=== PATIENT | female | born 1990 | race Caucasian/White ===

== ENCOUNTER 2024-05-22 15:07 | Outpatient (OUT) | payer MEDICARE, MEDICAID, SELFPAY ==
[2024-05-22 17:01] LABS: Estimated Average Glucose 100 mg/dL; Glycohemoglobin A1C 5.1 % (4.5-6.2)
[2024-05-22 17:42] LABS: Alanine Aminotransferase 44 U/L (14-59); Albumin Globulin Ratio 0.8; Albumin Level 2.8 g/dL (3.4-5.0); Alkaline Phosphatase 118 U/L (46-116); Anion Gap 8.5; Aspartate Amino Transferase 74 U/L (15-37); BUN Creatinine Ratio 17.9; Bilirubin Total 0.4 mg/dL (0.2-1.0); C Reactive Protein <0.50 mg/dL (<=0.50); Calcium 8.5 mg/dL (8.5-10.1); Carbon Dioxide 31.7 mmol/L (21.0-32.0); Chloride 99 mmol/L (98-107); Chol HDL Ratio 2.3; Cholesterol 175 mg/dL (<=200); Estimated GFR (African America >60 (>=60); Estimated GFR (Non-African Ame >60 (>=60); Free T3 3.03 pg/mL (2.18-3.98); Globulin 3.7 g/dL; Glucose 86 mg/dL (74-106); HDL Cholesterol 77 mg/dL (40-60); Potassium 3.2 mmol/L (3.5-5.1); Sodium 136 mmol/L (136-145); Thyroid Stimulating Hormone 2.736 uIU/mL (0.358-3.740); Total Protein 6.5 g/dL (6.4-8.2); Triglycerides 59 mg/dL (<=150); Uric Acid 3.9 mg/dL (2.6-6.0); VLDL CHOLESTEROL 11.8 mg/dL
[2024-05-23 06:13] LABS: Antistreptolysin O Ab 92.4 IU/mL (0.0-200.0); Rheumatoid Factor (RF) 15.3 IU/mL (<14.0)
[2024-05-24 11:07] LABS: Insulin 4.1 uIU/mL (2.6-24.9)
[2024-05-25 11:08] LABS: Antinuclear Antibodies, IFA Negative (.)
== END 2024-05-22 15:08 | disposition home or self-care (01) ==
PROVIDERS: PCP Family Medicine; Visit Provider Family Medicine
DX: R60.9 Edema, unspecified (principal); F32.A Depression, unspecified; E78.5 Hyperlipidemia, unspecified; R73.09 Other abnormal glucose; D64.9 Anemia, unspecified; E55.9 Vitamin D deficiency, unspecified; I11.0 Hypertensive heart disease with heart failure; I50.30 Unspecified diastolic (congestive) heart failure
CPT/HCPCS: 36415; 80053; 80061; 82306; 83036; 83525; 83540; 83880; 84436; 84443; 84481; 84550; 86038; 86060; 86140; 86431; 87522

== ENCOUNTER 2025-07-30 04:20 | Emergency (ER) | payer MEDICARE, MEDICAID, SELFPAY ==
[2025-07-30 04:26] VITALS: BP 143/88; PULSE 81; TEMP 36.8; O2SAT 99; BMI 28.2
--- OUTSIDE RECORDS SUMMARY | 2025-07-30 04:36 | XMS_ITS | CCD ---
Author Organization [facility] Care Team Providers Care Senior Reliability Engineer Name Role Phone Rosa Maria Charlton Primary Care Provider SOLITARIO JACQUES Referring Unavailable ROSA MARIA CHARLTON Primary Care Unavailable MD Rosa Maria Charlton Primary Care Provider [phone] MD Bal Casey Attending Provider Rosa Maria Charlton MD Primary Care Provider Bal Casey MD Attending Provider Rosa Maria Charlton Primary Care Unavailable Asaad Imad Attending Unavailable Asamaggie Imad Admitting Unavailable Asamaggie Imad Admitting Unavailable Rosa Maria Charlton Primary Care Unavailable Asamaggie Immaggie Attending Unavailable Medications Current Medications Medication Drug Class(es) Dates Sig (Normalized) Sig (Original) Acetaminophen (1 source) Acetaminophen (T YLENOL PO) Take by mouth as needed 0 Active Problems Problem Classification Problem Date Documented Da te Episodic/Chronic Hepatitis (7 sources) Viral hepatitis C; Translations: [Unspecified viral hepatitis C without hepatic coma] Onset: 09-21-2024 09-08-2024 Episodic Results Test Name Value Interpretation Reference Range Facility HIV 1/O/2 Antigen/Antibodyon 09-21-2024 HIV Screen 4th Generation Non-Reactive Normal Non Reactive [facility] Comment on above: Result Comment: HIV- 1/HIV-2 antibodies and HIV-1 p24 antigen were NOT detected. There is no laboratory evidence of HIV infection. HIV Negative Performed at: [facility] [id number] Funeral Home Manager: Pascual De La Cruz PhD, Phone: [phone] PERFORMED BY: [address] [address] PATHOLOGIST CORRUGATOR JANET MILLAN M.D. Performed By: #### H BCAB, HBSAB, HAABT, HIV SCREEN, HBSAG, HCV RX PCR, HCV RNA DIAG #### [facility] , Hep C Ab wRfx to Qnt PCRon 1 11-21-2023 HCV Log10 6.999 Normal . [facility] Comment on above: Result Comment: Resu lt Units: log10 IU/mL Performed By: #### H BCAB, HBSAB, HAABT, HIV SCREEN, HBSAG, HCV RX PCR, HCV RNA DIAG #### [facility] , Hepatitis C Quantitation [id number] [IU]/mL Normal . [facility] Comment on above: Performed By: #### H BCAB, HBSAB, HAABT, HIV SCREEN, HBSAG, HCV RX PCR, HCV RNA DIAG #### [facility] , Hepatitis C Virus Antibody Reactive Critically abnormal Non Reactive [facility] Comment on above: Performed By: #### H BCAB, HBSAB, HAABT, HIV SCREEN, HBSAG, HCV RX PCR, HCV RNA DIAG #### [facility] , Interpretation Comment Normal . [facility] Comment on above: Result Comment: Posi tive HCV antibody screen with the presence of HCV RNA is consistent with active infection. Performed at: [facility] [address] [id number] Funeral Home Manager: Pascual De La Cruz PhD, Phone: [phone] Performed at: [facility] [address] [id number] Funeral Home Manager: Stephanie Vergara MD, Phone: [phone] Performed By: #### H BCAB, HBSAB, HAABT, HIV SCREEN, HBSAG, HCV RX PCR, HCV RNA DIAG #### [facility] , Hep C RNA Diagnosison 2023 HCV RNA log10, Confirm 7.097 Normal . [facility] Comment on above: Result Comment: Resu lt Units: log10 IU/mL PERFORMED BY: [address] [place] [address] PATHOLOGIST CORRUGATOR JANET MILLAN M.D. Performed By: #### H BCAB, HBSAB, HAABT, HIV SCREEN, HBSAG, HCV RX PCR, HCV RNA DIAG #### [facility] , HCV RNA, Quant, Confirm [id number] Normal . [facility] Comment on above: Result Comment: HCV RNA detected HCV RNA viral loads >/= 25 IU/mL indicate current HCV infection. Performed By: #### H BCAB, HBSAB, HAABT, HIV SCREEN, HBSAG, HCV RX PCR, HCV RNA DIAG #### [facility] , HCV RNA, Quantitation See Final Results Normal . [facility] Comment on above: Performed By: #### H BCAB, HBSAB, HAABT, HIV SCREEN, HBSAG, HCV RX PCR, HCV RNA DIAG #### [facility] , Test Information: Comment Normal . [facility] Comment on above: Result Comment: The quantitative range of this assay is 15 IU/mL to 100 million IU/mL. Performed at: [address] [id number] Funeral Home Manager: Stephanie Vergara MD, Phone: [phone] Performed By: #### H BCAB, HBSAB, HAABT, HIV SCREEN, HBSAG, HCV RX PCR, HCV RNA DIAG #### [facility] , Result Comment: The quantitative range of this assay is 15 IU/mL to 100 million IU/mL. Hepatitis A Antibody Totalon 09-21-2024 Hepatitis A Antibody Total Negative Normal Negative [facility] Comment on above: Result Comment: Comm ent: The HAV total antibody assay detects both IgG and IgM but does not differentiate between them. A negative result suggests susceptibility to infection. A positive result could be due to vaccination, previously resolved infection or active infection. Testing for HAV IgM should be performed if active HAV infection is suspected. [facility] offers profiles that will automatically reflex positive HAV total antibody results to IgM (e.g., panel #[id number] HAV Antibody w/ Rfx). Performed at: [address] [id number] Funeral Home Manager: Pascual De La Cruz PhD, Phone: [phone] Performed By: #### H BCAB, HBSAB, HAABT, HIV SCREEN, HBSAG, HCV RX PCR, HCV RNA DIAG #### [facility] , Hepatitis B Core Antibodyon 09-21-2024 Hepatitis B Core Antibody Positive Critically abnormal Negative [facility] Comment on above: Performed By: #### H BCAB, HBSAB, HAABT, HIV SCREEN, HBSAG, HCV RX PCR, HCV RNA DIAG #### [facility] , Hepatitis B Surface Antibody on 09-21-2024 Hepatitis B Surface Antibody Non-Reactive Normal . [facility] Comment on above: Result Comment: Non Reactive: Not immune to HBV infection. Equivocal: Unable to determine if anti-HBs is present at levels consistent with immunity. Reactive: Anti-HBs concentration detected at greater than 10 mIU/mL. Individual is considered to be immune to infection with HBV. Performed By: #### H BCAB, HBSAB, HAABT, HIV SCREEN, HBSAG, HCV RX PCR, HCV RNA DIAG #### [facility] , Hepatitis B Surface Antigeno n 09-21-2024 HBsAg Screen Negative Normal Negative [facility] Comment on above: Result Comment: PERF ORMED BY: [place] [address] PATHOLOGIST CORRUGATOR PALOMA KNIGHT M.D. Performed By: #### H BCAB, HBSAB, HAABT, HIV SCREEN, HBSAG, HCV RX PCR, HCV RNA DIAG #### [facility] , US liveron 09-21-2024 US liver [place] [address] Ultrasound Report Signed Patient: Dayana Bach MR#: [id number] : 1990 Acct:[id number] Age/Sex: 34 / F ADM Date: 09/21/24 Loc: Room: Type: [facility] Attending Dr: Bal Casey MD Ordering Provider: Bal Casey MD Date of Service: 09/21/24 US/US liver: B19.20 - Unspecified viral hepatitis C without hepatic coma Copies to: Bal Casey MD EXAMINATION TYPE: US liver DATE OF EXAM ORDERED: 09/21/2024 11:04 AM HISTORY: Hepatitis C COMPARISON: NONE TECHNIQUE: Realtime imaging limited to the right upper quadrant was performed. FINDINGS: The gallbladder appears within normal limits without evidence of cholelithiasis. The gallbladder wall measures 2 mm in thickness. Common bile but measures 8 mm in diameter. No intrahepatic or extrahepatic biliary dilatation is seen. The liver is echogenic in respect to the right renal cortex suggesting hepatic steatosis. There is hepatopedal flow the main portal vein. Partial visualization of the right kidney reveals no gross hydronephrosis. Partial visualization of the pancreas reveals no abnormality. ? US/US liver IMPRESSION: Findings suggest hepatic steatosis. No sonographic evidence of acute cholecystitis. The common bile duct is mildly distended measuring 8 mm in transverse dimension. This is of uncertain etiology or significance. Impression dictated by: Ivan Guevara M.D.09/21/2024 5:45 PM Dictation Location: [place] [address] Tech: Liv Wagoner Transcribed By: BART 09/21/241744 Dictated By: Ivan Guevara II, MD 09/21/241742 Signed By: 09/21/241744 Normal [facility] COVID-19on 03-24-2020 SARS-CoV-2 [place] SARS-CoV-2, PCR Not Detected Not Detected [place] Comment on above: (NOTE) The Ross RealTime SARS-CoV-2 assay is a real-time (rt) reverse transcriptase (RT) polymerase chain reaction (PCR) test intended for the [employer] system. The SARS-CoV-2 primer and probe sets are designed to detect RNA from SARS-CoV-2 in nasopharyngeal (SEAM FINISHER) and oropharyngeal (OP) swabs from patients with signs and symptoms of infection who are suspected of COVID-19. Results are for the identification of SARS-CoV-2 RNA. The SARS-CoV-2 RNA is generally detectable in a nasopharyngeal and oropharyngeal swabs during the acute phase of infection. The Ross RealTime SARS-CoV-2 assay is intended for use by qualified and trained clinical laboratory personnel specifically instructed and trained in the techniques of real-time PCR and in vitro diagnostic procedures. The Ross RealTime SARS-CoV-2 assay is only for use under the Food and Drug Administration Emergency Use Authorization. Testing is limited to laboratories certified under the Clinical Laboratory Improvement Amendments of 1988 (CLIA), 42 U.S.C. 263a, to perform high complexity tests. Not Detected: Not detected does not preclude SARS-CoV-2 infection and should not be used as the sole basis for patient management decisions. Not detected results must be combined with clinical observations, patient history, and epidemiological information. The above 1 analytes were performed by [address] [address] SARS-CoV-2, [place], [place] Source .NASOPHARYNGEAL SWAB [place], [place] [id number] 03-24-2020 SARS-CoV-2 Not Detected Normal Not Detected [facility] Hospital Comment on above: Result Comment: (NOT E) The Ross RealTime SARS-CoV-2 assay is a real-time (rt) reverse transcriptase (RT) polymerase chain reaction (PCR) test intended for the [employer] system. The SARS-CoV-2 primer and probe sets are designed to detect RNA from SARS-CoV-2 in nasopharyngeal (SEAM FINISHER) and oropharyngeal (OP) swabs from patients with signs and symptoms of infection who are suspected of COVID-19. Results are for the identification of SARS-CoV-2 RNA. The SARS-CoV-2 RNA is generally detectable in a nasopharyngeal and oropharyngeal swabs during the acute phase of infection. The Ross RealTime SARS-CoV-2 assay is intended for use by qualified and trained clinical laboratory personnel specifically instructed and trained in the techniques of real-time PCR and in vitro diagnostic procedures. The Ross RealTime SARS-CoV-2 assay is only for use under the Food and Drug Administration Emergency Use Authorization. Testing is limited to laboratories certified under the Clinical Laboratory Improvement Amendments of 1988 (CLIA), 42 U.S.C. 263a, to perform high complexity tests. Not Detected: Not detected does not preclude SARS-CoV-2 infection and should not be used as the sole basis for patient management decisions. Not detected results must be combined with clinical observations, patient history, and epidemiological information. The above 1 analytes were performed by [facility] [address] [place] [address] Performed By: #### C OVID #### [facility] [address] [place] [address] Funeral Home Manager: Gabriel Lujan MD [facility] [address] [place] [address] Funeral Home Manager: Alexis Tello MD [id number] 03-23-2020 SARS-CoV-2,Rapid Normal [facility] Comment on above: Performed By: #### C OVID #### [facility] [address] [place] [address] Funeral Home Manager: Gabriel Lujan MD [facility] [address] [place] [address] Funeral Home Manager: Alexis Tello MD SARS-CoV-2 [facility] Comment on above: Performed By: #### C OVID #### [facility] [address] [place] [address] Funeral Home Manager: Gabriel Lujan MD [facility] [address] [place] [address] Funeral Home Manager: Alexis Tello MD SARS-CoV-2 Source .NASOPHARYNGEAL SWAB [facility] Comment on above: Performed By: #### C OVID #### [address] [address] Funeral Home Manager: Gabriel Lujan MD [facility] [address] [place] [address] Funeral Home Manager: Alexis Tello MD Vital Signs Date Time Vital Sign Value Performing Clinician Rileyi eric 09-08-2024 14:09 Body height 170.[address] [facility] 09-08-2024 14:09 Body mass index (BMI) [Ratio] 29 kg/m2 [facility] 09-08-2024 14: Body weight 83.[address] [facility] Encounters Encounter Date Encounter Type Care Provider Facility Start: 09-21-2024 End: 09-21-2024 Patient encounter procedure Rosa Maria Charlton MD Work Phone: [facility] Work Phone: Start: 09-21-2024 End: 09-21-2024 ambulatory Rosa Maria Charlton MD Work Phone: [facility] Work Phone: Start: 09-15-2024 End: 09-15-2024 Patient encounter procedure MD Rosa Maria Charlton Work Phone: [facility] Work Phone: Start: 09-15-2024 End: 09-15-2024 ambulatory MD Rosa Maria Charlton Work Phone: [facility] Work Phone: Start: 09-08-2024 End: 09-08-2024 ambulatory [facility] Work Phone: Start: 09-08-2024 End: 09-08-2024 Patient encounter procedure [facility] Work Phone: Start: 03-23-2020 End: 03-28-2020 Patient encounter procedure SOLITARIO JACQUES [facility] Start: 03-23-2020 End: 03-27-2020 Subsequent hospital visit by physician [facility] Covid19 Pat Screening Schedule MTHZ PRE ADMIT Procedures Date Procedure Procedure Detail Performing Clinician Start: 09-21-2024 Ultrasonography of liver Rosa Maria Charlton MD Work Phone: Start: 09-15-2024 Ultrasound elastogra phy of liver MD Rosa Maria Charlton Work Phone: Start: 03-23-2020 COVID-19 SOLITARIO LEZAMA Start: 03-23-2020 COVID-19 Solitario babcock Work Phone: Plan of Treatment Date Care Activity Detail Author Start: 09-21-2024 Hepatitis A virus Ab [Presence] in Serum by Immunoassay [facility] Start: 09-21-2024 Hepatitis B core antibody measurement [facility] Start: 09-21-2024 Hepatitis B virus surface Ab [Presence] in Serum [facility] Start: 09-21-2024 [facility] Start: 09-15-2024 [facility] Start: 07-12-2020 Influenza vaccination Flu vaccine (Season Ended) [place] Start: 03-22-2020 Annual Wellness Visit (AWV) Annual Wellness Visit (AWV) [place] Start: 2010 Screening for malignant neoplasm of cervix Cervical cancer screen [place] Start: 2008 DTaP/Tdap/Td vaccine (1 - Tdap) DTaP/Tdap/Td vaccine (1 - Tdap) [place] Start: 2004 HIV screening HIV screen [place] Start: 1995 Pneumococcal 0-64 years Vaccine (1 of 1 - PPSV23) Pneumococcal 0-64 years Vaccine (1 of 1 - PPSV23) [place] Start: 1990 Varicella vaccine (1 of 2 - 2-dose childhood series) Varicella vaccine (1 of 2 - 2-dose childhood series) [place] Hepatitis A virus Ab [Presence] in Serum by Immunoassay [facility] Hepatitis B core antibody measurement [facility] Hepatitis B virus surface Ab [Presence] in Serum [facility] Payers Date Payer Category Payer Medicaid MEDICAID [facility] DEPT OF JOB xxxxxxxxxxxx 2019-Present [phone] [address] [place] [address] xxxxxxxxxxxx [id number] 2019 Medicaid [id number] 2018 Medicare MEDICARE MEDICAR E PART A AND B xxxxxxxxxxx 2018-Present [phone] [address] [address] [place] [address] xxxxxxxxxxx [id number] 2018 Medicare [id number] 1990 Unknown [id number] Private Health Insurance A[employer]na [facility] [id number] Social History Date Type Detail Facility Start: 03-23-2020 Tobacco smoking stat us [facility]IS Current every day smoker [place] Start: 03-23-2020 Cigarettes smoked current (pack per day) - Reported [place] Start: 03-23-2020 Alcohol intake Ex-drinker (finding) [place] Sex Assigned At Not on file [place] Exposure to SARS-CoV -2 (event) Unable to assess [place] Start: 09-08-2024 End: 09-08-2024 Tobacco smoking status NHIS Smoker (finding) [facility] Start: 1990 Sex Assigned At Female F [facility] Start: 09-22-2024 Sex Patient sex un known (finding) [facility] Goals Date Patient Goal Desired Activity /State Radiology Diagnostic study note 09-21-2024 Note Date & Type Note Facility 09-21-2024 Radiology Diagnostic study note [facility] [place] [address] Ultrasound Report Signed Patient: Dayana Bach MR#: [id number] : 1990 Acct:[id number] Age/Sex: 34 / F ADM Date: 4 Loc: UL Room: Type: [facility] Attending Dr: Bal Casey MD Ordering Provider: Bal Casey MD Date of Service: 09/21/24 US/US liver: B19.20 - Unspecified viral hepatitis C without hepatic coma Copies to: Bal Casey MD~ EXAMINATION TYPE: US liver DATE OF EXAM ORDERED: 09/21/2024 11:04 AM HISTORY: Hepatitis C COMPARISON: NONE TECHNIQUE: Realtime imaging limited to the right upper quadrant was performed. FINDINGS: The gallbladder appears within normal limits without evidence of cholelithiasis. The gallbladder wall measures 2 mm in thickness. Common bile but measures 8 mmin diameter. No intrahepatic or extrahepatic biliary dilatation is seen. The liver is echogenic in respect to the right renal cortex suggesting hepatic steatosis. There is hepatopedal flow the main portal vein. Partial visualization of the right kidney reveals no gross hydronephrosis. Partial visualization of the pancreas reveals no abnormality. ? US/US liver IMPRESSION: Findings suggest hepatic steatosis. No sonographic evidence of acute cholecystitis. The common bile duct is mildly distended measuring 8 mm in transverse dimension. This is of uncertain etiology or significance. Impression dictated by: Ivan Guevara M.D.09/21/2024 5:45 PM Dictation Location: [place] [address] Tech: Liv Wagoner Transcribed By: BART 09/21/241744 Dictated By: Ivan Guevara II, MD 09/21/241742 Signed By: 09/21/241744 [facility] Work Phone: Evaluation note 09-08-2024 Note Date & Type Note Facility 09-08-2024 Evaluation note Authored September 08, 2024 1 :31pm 34-year-old female referred to the liver clinic for evaluation of hepatitis C Patient is treatment na ve. Will check viral hepatitis serologies, HCV RNA genotype and HIV Will arrange for FibroScan. Will arrange for ultrasound. Will prescribe antiviral therapy and follow-up with insurance regarding approval. [facility] Work Phone: Evaluation note Note Date & Type Note Facility Evaluation note Authored September 08, 2024 2 :31pm 34-year-old female referred to the liver clinic for evaluation of hepatitis C Patient is treatment na ve. Will check viral hepatitis serologies, HCV RNA genotype and HIV Will arrange for FibroScan. Will arrange for ultrasound. Will prescribe antiviral therapy and follow-up with insurance regarding approval. [facility] Work Phone: Advance Directives No Advanced Directives Records FoundDocuments on File Type Date Recorded Patient Retail Advertising Sales Manager Expl anation Advance Directives and Living Will Power of Correctional Counselor Advance Directive Response Recorded Date/ Time Advance Directives No Mirna 25th, 20 24 1:09pm Advance Directive Response Recorded Date/ Time Advance Directives No June 04 12:09pm Summary Purpose Family History No Family History Records Found Relationship Condition Age at Onset Recorded Date/T mela mother Malignant neoplasm Unknown Chief Complaint and Reason for Visit Chief Complaint Refer: consult for h epatitis c Reason for Visit Hepatitis C Chief Complaint Refer: consult for h epatitis c Hepatitis C Reason for Visit Hepatitis C Chief Complaint Admit Date Refer: consult for hepatitis c August 122023 1:57pm Hepatitis C September 15, 2024 1 2:58pm B19.20 September 21, 2024 11:03am Reason for Visit Admit Date Hepatitis C September 08, 2024 1 :57pm Additional Source Comments INFORMATION SOURCE (unrecogn ized section and content) DATE CREATED AUTHOR 03/28/2020 Shani winkler DATE CREATED AUTHOR 'Kathleen RUIZ ATION 09/26/2024 [facility] Care Teams (unrecognized sec tion and content) Team Status: Active Member Role Status Gwyn Charlton MD Primary Care Provider Active Team Status: Inactive Member Role Status Gwyn Charlton MD Primary Care Provider Active Start: September 08, 2024 End: September 08, 2024 Bal Casey MD Attending Provider Active Start: September 08, 2024 End: September 08, 2024 Team Status: Inactive Member Role Status Gwyn Charlton MD Primary Care Provider Active Start: September 15, 2024 End: September 15, 2024 Bal Casey MD Attending Provider Active Start: September 15, 2024 End: September 15, 2024 Team Status: Inactive Member Role Status Gwyn Charlton MD Primary Care Provider Active Start: September 21, 2024 End: September 21, 2024 Bal Casey MD Attending Provider Active Start: September 21, 2024 End: September 21, 2024 Goals (unrecognized section and content) Goals may be documented in a n alternate section FOR RECORDS PERTAINING TO PATIENTS WHO ARE OR HAVE BEEN ENROLLED IN A CHEMICAL DEPENDENCY/SUBSTANCEABUSE PROGRAM, SOME INFORMATION MAY BE OMITTED. This clinical summary was aggregated from multiple sources. Caution should be exercised in using it in the provision of clinical care. This summary normalizes information from multiple sources, and as a consequence, information in this document may materially change the coding, format and clinical context of patient data. In addition, data may be omitted in some cases. CLINICAL DECISIONS SHOULD BE BASED ON THE PRIMARY CLINICAL RECORDS. [facility] [employer] [facility]. provides no warranty or guarantee of the accuracy or completeness of information in this document.
--- NOTE | 2025-07-30 04:43 | ED_ITS ---
HPI HPI - General Adult General Chief complaint: Abdominal Pain Stated complaint: ABDOMINAL PAIN Time Seen by Provider: 07/30/25 04:21 Source: patient Mode of arrival: ambulance History of Present Illness HPI narrative: Patient is a 35-year-old female presenting to the emergency department for evaluation of abdominal pain. Patient states that she woke up with middle of the night with severe left-sided abdominal pain that radiates to her left flank and lower back. She has never had pain like this in the past. She states she feels nauseous, but has not had any vomiting, constipation, or diarrhea. She denies history of kidney stones. No history of intra-abdominal surgeries other than a hysterectomy in the past. She denies any urinary symptoms such as dysuria or hematuria. No vaginal bleeding or discharge. Her last menstrual cycle ended 5 days ago. She denies being currently . She denies any chest pain or shortness of breath. No fevers or chills. She is otherwise healthy with no chronic medical conditions. She has not drank alcohol in the last 2 weeks, but was recently a daily drinker. She denies any history of drug use. Related Data Home Medications ?Medication ?Instructions ?Recorded ?Confirmed No Known Home Medications 07/30/2507/12 Allergies Allergy/AdvReac Type Severity Reaction Status Date / Time No Known Drug Allergies Allergy Verified 07/30/25 04:30 Opioid HPI Opioid Management Most Recent Opioid Data: Last Pain Scale 9 Today, 05:48 Last MAR Pain Assessment Today, 05:04 Review of Systems ROS Status of ROS 10 or more systems reviewed and unremark able except as noted in history and below PFSH PFSH Social History Little interest or pleasure in doing things: not at all Feeling down, depressed, or hopeless: not at all Exam Narrative Exam Narrative: CONSTITUTIONAL: Patient appears to be in acute distress, writhing in pain, answering questions and follow commands appropriately. SKIN: Was warm and dry. EYES: No scleral icterus. No conjunctival pallor. EARS, NOSE, THROAT: Moist oral mucosa. No tongue fasciculations. RESPIRATORY: Clear to auscultation bilaterally, no wheezes, crackles, or stridor, no use of accessory muscles CARDIOVASCULAR: Normal rate and regular rhythm. There is no S3, S4, murmur, rub. GASTROINTESTINAL: Tenderness to palpation throughout the left side of the abdomen. No rebound tenderness or guarding. Nondistended. No CVA tenderness bilaterally. Negative Brown sign. MUSCULOSKELETAL: Multiple small bruises on the bilateral forearms. No peripheral edema. NEUROLOGIC: Patient is awake and alert. Facies were symmetrical. Constitutional Vital Signs, click to edit/add: Last Vital Signs Temp 98.2 F 07/30/25 04:26 Pulse 91 H 07/30/25 06:26 Resp 18 07/30/25 06:26 BP 128/89 07/30/25 06:26 Pulse Ox 96 07/30/25 06:26 O2 Del Method Room Air 07/30/25 06:26 Course Vital Signs Vital signs: Vital Signs Temperature 98.2 F 07/30/25 04:26 Pulse Rate 81 07/30/25 04:26 Respiratory Rate 16 07/30/25 04:26 Blood Pressure 143/88 H 07/30/25 04:26 Pulse Oximetry 99 07/30/25 04:26 Oxygen Delivery Method Room Air 07/30/25 04:26 Temperature 98.2 F 07/30/25 04:26 Pulse Rate 91 H 07/30/25 06:26 Respiratory Rate 18 07/30/25 06:26 Blood Pressure 128/89 07/30/25 06:26 Pulse Oximetry 96 07/30/25 06:26 Oxygen Delivery Method Room Air 07/30/25 06:26 Medical Decision Making MDM Narrative Medical decision making narrative: Patient is a 35-year-old female presenting to the emergency department with acute onset of left-sided abdominal pain and nausea beginning 1 hour ago. Vital signs on arrival were significant for mild hypertension, otherwise were within normal limits. She is afebrile and hemodynamically stable. Examination as noted above, however was notable for tenderness to palpation throughout the left side of her abdomen without peritoneal signs. Differential diagnosis includes, but not limited to, diverticulitis, nephrolithiasis, pancreatitis, ovarian torsion, colitis, constipation, UTI, or other intra-abdominal pathologies. IV was established and laboratory studies were obtained. CT abdomen/pelvis with IV contrast and pelvic US w/ Doppler were ordered @ 4:30am. Ultrasound staff were called in emergently for imaging as they are not currently in-house. She was given 1 mg Dilaudid, 4 mg IV Zofran, and 1 L bolus normal saline for symptomatic treatment. Laboratory studies were unremarkable. No significant electrolyte or metabolic derangement. No evidence of acute kidney injury. No anemia, leukocytosis, or thrombocytopenia. No transaminitis or hyperbilirubinemia. test negative. Lipase non-elevated. At 6:00am, I was called by radiology regarding the CT abdomen/pelvis. Radiology reads as follows: Ovarian torsion, likely the left ovary, associated with a large homogenous hypoattenuating mass measuring 16 x 10.9 x 13.3 cm . At 6:05am, I consulted and discussed the patient with on-call GEAR MACHINE OPERATOR, Dr. Ruffin, with the results of the CT, concern for torsion. He recommended first obtaining an ultrasound before any further recommendations or interventions. At 6:45am the senior database engineer completed the pelvic US. She said there was a 14cm complex mass/cyst without vascularity or evidence of malignancy. Given the size, she had difficulty viewing ovarian tissue - study was equivocal to evaluate flow to the ovary. At 6:48am I discussed the patient again with Dr. Ruffin who will evaluate the patient for possible surgical intervention. Patient will be signed out to the oncoming ED physician pending GEAR MACHINE OPERATOR recommendation. Patient required two additional doses of 1mg IV Dilaudid and 30mg IV ketorolac for pain. FINAL IMPRESSION: #Acute left ovarian mass, concerning for ovarian torsion DISPOSITION: Signed out to ED physician CONDITION: Guarded Medical Records Medical records reviewed: Yes I reviewed the patient's medical records Lab Data Lab results reviewed: Yes I reviewed the patient's lab results Labs: Lab Results 07/30/25 07/30/25 Range/Units 05:00 05:05 WBC 6.0 (4.0-11.0) 10^3/uL RBC 3.86 L (4.20-5.40) 10^6/uL Hgb 12.7 (12.0-16.0) g/dL Hct 37.6 (36.0-48.0) % MCV 97.4 (81.0-99.0) fL MCH 32.9 (26.7-34.0) pg MCHC 33.8 (29.9-35.2) g/dL RDW 15.1 H (11.0-15.0) % Plt Count 153 (150-450) 10^3/uL MPV 11.2 (9.5-13.5) fL Neut % (Auto) 49.9 (43.0-75.0) % Lymph % (Auto) 31.7 (20.5-60.0) % [place] % (Auto) 7.0 (1.7-12.0) % Eos % (Auto) 10.2 H (0.9-7.0) % Baso % (Auto) 1.0 (0.2-2.0) % Neut # (Auto) 3.0 (1.4-6.5) 10^3/uL Lymph # (Auto) 1.9 (1.2-3.8) 10^3/uL [place] # (Auto) 0.4 (0.3-0.8) 10^3/uL Eos # (Auto) 0.6 (0.0-0.7) 10^3/uL Baso # (Auto) 0.1 (0.0-0.1) 10^3/uL Abs Immat Gran (auto) 0.01 (0.00-0.03) 10^3/uL Imm/Tot Granulo (auto) 0.2 (0.0-0.5) % PT 10.5 (9.0-11.6) sec INR 0.99 APTT 27.8 (22.3-36.2) sec Sodium 143 (136-145) mmol/L Potassium 3.7 (3.5-5.1) mmol/L Chloride 107 (98-107) mmol/L Carbon Dioxide 29.1 (21.0-32.0) mmol/L Anion Gap 10.6 BUN 13.0 (7.0-18.0) mg/dL Creatinine 0.81 (0.55-1.02) mg/dL Est GFR ( Amer) >60 (>=60 mL/min/1.73m^2) Est GFR (Non-Af Amer) >60 (>=60 mL/min/1.73m^2) BUN/Creatinine Ratio 16.0 Glucose 132 H (74-106) mg/dL Calcium 8.4 L (8.5-10.1) mg/dL Total Bilirubin 0.2 (0.2-1.0) mg/dL AST 20 (15-37) U/L ALT 24 (14-59) U/L Alkaline Phosphatase 77 (46-116) U/L Total Protein 6.2 L (6.4-8.2) g/dL Albumin 2.8 L (3.4-5.0) g/dL Globulin 3.4 g/dL Albumin/Globulin Ratio 0.8 Lipase 19.0 (16.0-77.0) U/L Serum HCG, Qual Negative (NEGATIVE) Urine Color Yellow (YELLOW) Urine Clarity Sl cloudy (CLEAR) Urine pH 6.5 (5.0-9.0) Ur Specific [place] 1.025 (1.005-1.025) Urine Protein Trace (NEG/TRACE) mg/dL Urine Glucose (UA) Negative (NEGATIVE) mg/dL Urine Ketones Negative (NEGATIVE) mg/dL Urine Occult Blood Small A (NEGATIVE) Urine Nitrite Negative (NEGATIVE) Urine Bilirubin Negative (NEGATIVE) Urine Urobilinogen 1.0 (0.2-1.0) EU/dL Ur Leukocyte Esterase Negative (NEGATIVE) Urine RBC 0-2 (0-2) #/HPF Urine WBC 5-10 A (NONE SEEN) #/HPF Ur Squamous Epith Cells Many A (NONE/RARE) #/LPF Urine Crystals None seen (None Seen) #/HPF Urine Bacteria Large A (NONE SEEN) #/HPF Urine Casts None seen (NONE SEEN) #/LPF Urine Mucus Moderate A (NONE SEEN) Ur Culture Indicated? Yes-[facility] [place] Imaging Data CT scan - abdomen: Attestation: I personally reviewed and interpreted this imaging study as follows: Discharge Plan Discharge Patient Disposition: Still a Patient
[2025-07-30] MEDS: 0.9 % SODIUM CHLORIDE 1,000 ML 1000 ML IV (05:02)
[2025-07-30] MEDS: HYDROMORPHONE HCL 1 MG/ML CARTRIDGE IV ×3 (05:04→08:50)
[2025-07-30 05:25] LABS: Glucose Urine UA NEGATIVE (NEGATIVE)
[2025-07-30 05:25] LABS: Hematocrit 37.6 % (36.0-48.0); Hemoglobin 12.7 g/dL (12.0-16.0); Immature Granulocytes Abs Auto 0.01 10^3/uL (0.00-0.03); Immature Granulocytes Pct Auto 0.2 % (0.0-0.5); Lymphocytes Absolute Auto 1.9 10^3/uL (1.2-3.8); Mean Corpuscular HGB Conc 33.8 g/dL (29.9-35.2); Mean Corpuscular Hemoglobin 32.9 pg (26.7-34.0); Mean Corpuscular Volume 97.4 fL (81.0-99.0); Platelet Count 153 10^3/uL (150-450); Red Blood Count 3.86 10^6/uL (4.20-5.40); White Blood Count 6.0 10^3/uL (4.0-11.0)
[2025-07-30 05:38] LABS: Alanine Aminotransferase 24 U/L (14-59); Albumin Globulin Ratio 0.8; Albumin Level 2.8 g/dL (3.4-5.0); Alkaline Phosphatase 77 U/L (46-116); Anion Gap 10.6; Aspartate Amino Transferase 20 U/L (15-37); Blood Urea Nitrogen 13.0 mg/dL (7.0-18.0); Calcium 8.4 mg/dL (8.5-10.1); Carbon Dioxide 29.1 mmol/L (21.0-32.0); Chloride 107 mmol/L (98-107); Estimated GFR (African America >60 (>=60 mL/min/1.73m^2); Estimated GFR (Non-African Ame >60 (>=60 mL/min/1.73m^2); Globulin 3.4 g/dL; Glucose 132 mg/dL (74-106); Lipase 19.0 U/L (16.0-77.0); Potassium 3.7 mmol/L (3.5-5.1); Sodium 143 mmol/L (136-145); Total Protein 6.2 g/dL (6.4-8.2)
[2025-07-30 05:59] LABS: Cast Seen? NONE SEEN #/LPF (NONE SEEN); Crystals Seen? None Seen #/HPF (None Seen); Urine Culture Indicated YES-FRMC
[2025-07-30] MEDS: HYDROMORPHONE HCL 1 MG/ML CARTRIDGE IVP (06:15)
[2025-07-30] MEDS: KETOROLAC TROMETHAMINE 30 MG/ML VIAL IVP (06:15)
[2025-07-30 06:26] VITALS: BP 128/89; PULSE 91; O2SAT 96
[2025-07-30 06:28] LABS: INR 0.99; Partial Thromboplastin Time 27.8 sec (22.3-36.2); Prothrombin Time 10.5 sec (9.0-11.6)
--- NOTE | 2025-07-30 08:18 | ED_ITS ---
HPI HPI - General Adult General Chief complaint: Abdominal Pain Stated complaint: ABDOMINAL PAIN Time Seen by Provider: 07/30/25 04:21 Source: patient Mode of arrival: ambulance History of Present Illness HPI narrative: 35-year-old female presented to the emergency department and was initially seen by Dr. Cassidy and signed out to me. Please see his full history and physical exam Related Data Home Medications ?Medication ?Instructions ?Recorded ?Confirmed No Known Home Medications 07/30/2507/12 Allergies Allergy/AdvReac Type Severity Reaction Status Date / Time No Known Drug Allergies Allergy Verified 07/30/25 04:30 Opioid HPI Opioid Management Most Recent Opioid Data: Last Pain Scale 9 Today, 05:48 Last MAR Pain Assessment Today, 05:04 [facility] Medical History (Updated 07/30/25 @ 08:22 by Blanco Tran MD) Hepatitis C ?B19.20 - Unspecified viral hepatitis C without hepatic coma (ICD-10) Ovarian cyst ?N83.209 - Unspecified ovarian cyst, unspecified side (ICD-10) Ovarian torsion ?N83.519 - Torsion of ovary and ovarian pedicle, unspecified side (ICD-10) CVA (cerebral vascular accident) ?I63.9 - Cerebral infarction, unspecified (ICD-10) Social History Little interest or pleasure in doing things: not at all Feeling down, depressed, or hopeless: not at all Exam Constitutional Vital Signs, click to edit/add: Last Vital Signs Temp 98.2 F 07/30/25 04:26 Pulse 91 H 07/30/25 06:26 Resp 18 07/30/25 06:26 BP 128/89 07/30/25 06:26 Pulse Ox 96 07/30/25 06:26 O2 Del Method Room Air 07/30/25 06:26 Course Vital Signs Vital signs: Vital Signs Temperature 98.2 F 07/30/25 04:26 Pulse Rate 81 07/30/25 04:26 Respiratory Rate 16 07/30/25 04:26 Blood Pressure 143/88 H 07/30/25 04:26 Pulse Oximetry 99 07/30/25 04:26 Oxygen Delivery Method Room Air 07/30/25 04:26 Temperature 98.2 F 07/30/25 04:26 Pulse Rate 91 H 07/30/25 06:26 Respiratory Rate 18 07/30/25 06:26 Blood Pressure 128/89 07/30/25 06:26 Pulse Oximetry 96 07/30/25 06:26 Oxygen Delivery Method Room Air 07/30/25 06:26 Medical Decision Making MDM Narrative Medical decision making narrative: Dr. Ruffin and Dr. Cunningham have both seen the patient here in the emergency department. Dr. Ruffin is requesting transfer to more appropriate facility and I have spoken to Dr. Hansen at [facility]. She accepts the patient in transfer and the patient is agreeable and stable for transfer. Lab Data Lab results reviewed: Yes I reviewed the patient's lab results Labs: Lab Results 07/30/25 07/30/25 Range/Units 05:00 05:05 WBC 6.0 (4.0-11.0) 10^3/uL RBC 3.86 L (4.20-5.40) 10^6/uL Hgb 12.7 (12.0-16.0) g/dL Hct 37.6 (36.0-48.0) % MCV 97.4 (81.0-99.0) fL MCH 32.9 (26.7-34.0) pg MCHC 33.8 (29.9-35.2) g/dL RDW 15.1 H (11.0-15.0) % Plt Count 153 (150-450) 10^3/uL MPV 11.2 (9.5-13.5) fL Neut % (Auto) 49.9 (43.0-75.0) % Lymph % (Auto) 31.7 (20.5-60.0) % [place] % (Auto) 7.0 (1.7-12.0) % Eos % (Auto) 10.2 H (0.9-7.0) % Baso % (Auto) 1.0 (0.2-2.0) % Neut # (Auto) 3.0 (1.4-6.5) 10^3/uL Lymph # (Auto) 1.9 (1.2-3.8) 10^3/uL [place] # (Auto) 0.4 (0.3-0.8) 10^3/uL Eos # (Auto) 0.6 (0.0-0.7) 10^3/uL Baso # (Auto) 0.1 (0.0-0.1) 10^3/uL Abs Immat Gran (auto) 0.01 (0.00-0.03) 10^3/uL Imm/Tot Granulo (auto) 0.2 (0.0-0.5) % PT 10.5 (9.0-11.6) sec INR 0.99 APTT 27.8 (22.3-36.2) sec Sodium 143 (136-145) mmol/L Potassium 3.7 (3.5-5.1) mmol/L Chloride 107 (98-107) mmol/L Carbon Dioxide 29.1 (21.0-32.0) mmol/L Anion Gap 10.6 BUN 13.0 (7.0-18.0) mg/dL Creatinine 0.81 (0.55-1.02) mg/dL Est GFR ( Amer) >60 (>=60 mL/min/1.73m^2) Est GFR (Non-Af Amer) >60 (>=60 mL/min/1.73m^2) BUN/Creatinine Ratio 16.0 Glucose 132 H (74-106) mg/dL Calcium 8.4 L (8.5-10.1) mg/dL Total Bilirubin 0.2 (0.2-1.0) mg/dL AST 20 (15-37) U/L ALT 24 (14-59) U/L Alkaline Phosphatase 77 (46-116) U/L Total Protein 6.2 L (6.4-8.2) g/dL Albumin 2.8 L (3.4-5.0) g/dL Globulin 3.4 g/dL Albumin/Globulin Ratio 0.8 Lipase 19.0 (16.0-77.0) U/L Serum HCG, Qual Negative (NEGATIVE) Urine Color Yellow (YELLOW) Urine Clarity Sl cloudy (CLEAR) Urine pH 6.5 (5.0-9.0) Ur Specific [place] 1.025 (1.005-1.025) Urine Protein Trace (NEG/TRACE) mg/dL Urine Glucose (UA) Negative (NEGATIVE) mg/dL Urine Ketones Negative (NEGATIVE) mg/dL Urine Occult Blood Small A (NEGATIVE) Urine Nitrite Negative (NEGATIVE) Urine Bilirubin Negative (NEGATIVE) Urine Urobilinogen 1.0 (0.2-1.0) EU/dL Ur Leukocyte Esterase Negative (NEGATIVE) Urine RBC 0-2 (0-2) #/HPF Urine WBC 5-10 A (NONE SEEN) #/HPF Ur Squamous Epith Cells Many A (NONE/RARE) #/LPF Urine Crystals None seen (None Seen) #/HPF Urine Bacteria Large A (NONE SEEN) #/HPF Urine Casts None seen (NONE SEEN) #/LPF Urine Mucus Moderate A (NONE SEEN) Ur Culture Indicated? Yes-[facility] [place] Blood Type O Negative Antibody Screen Negative Imaging Data CT scan - abdomen: Radiologist's impression: CT per radiologist shows ovarian torsion, likely the left ovary, associated with large homogeneous hypoattenuating mass measuring 16 x 10.9 x 13.3 cm Ultrasound per radiologist is showing findings consistent with ovarian torsion Critical Care Time Critical Care Time Critical Care Time: Yes Total Critical Care Time: 35 Attestation: Due to the high probability of sudden and clinically significant deterioration in the patient's condition he/she required the highest level of my preparedness to intervene urgently I provided critical care time including documentation time, medication orders and management, reevaluation, vital sign assessment, ordering and reviewing of lab tests, ordering and reviewing of x-ray studies, and admission orders. Aggregate critical care time is 35 minutes including only time during which I was engaged in work directly related to his/her care and did not include time spent treating other patients simultaneously. Discharge Plan Discharge Chief Complaint: Abdominal Pain Clinical Impression: Ovarian torsion, Mass of ovary Patient Disposition: [facility] Time of Disposition Decision: 08:22 Discharge Location: [facility] Condition: Fair Mode of Transportation: EMS
--- NOTE | 2025-07-30 08:26 | ED.GENADUL1 ---
HPI HPI - General Adult General Chief complaint: Abdominal Pain Stated complaint: ABDOMINAL PAIN Time Seen by Provider: 07/30/25 04:21 Source: patient Mode of arrival: ambulance History of Present Illness HPI narrative: 35-year-old female presented to the emergency department and was initially seen by Dr. Cassidy. Please see his full history and physical exam. Related Data Home Medications ?Medication ?Instructions ?Recorded ?Confirmed No Known Home Medications 07/30/25 07/30/25 Allergies Allergy/AdvReac Type Severity Reaction Status Date / Time No Known Drug Allergies Allergy Verified 07/30/25 04:30 Opioid HPI Opioid Management Most Recent Opioid Data: Last Pain Scale 9 Today, 05:48 Last MAR Pain Assessment Today, 05:04 [facility] Medical History (Updated 07/30/25 @ 08:22 by Blanco Tran MD) Hepatitis C ?B19.20 - Unspecified viral hepatitis C without hepatic coma (ICD-10) Ovarian cyst ?N83.209 - Unspecified ovarian cyst, unspecified side (ICD-10) Ovarian torsion ?N83.519 - Torsion of ovary and ovarian pedicle, unspecified side (ICD-10) CVA (cerebral vascular accident) ?I63.9 - Cerebral infarction, unspecified (ICD-10) Social History Little interest or pleasure in doing things: not at all Feeling down, depressed, or hopeless: not at all Exam Constitutional Vital Signs, click to edit/add: Last Vital Signs Temp 98.2 F 07/30/25 04:26 Pulse 91 H 07/30/25 06:26 Resp 18 07/30/25 06:26 BP 128/89 07/30/25 06:26 Pulse Ox 96 07/30/25 06:26 O2 Del Method Room Air 07/30/25 06:26 Course Vital Signs Vital signs: Vital Signs Temperature 98.2 F 07/30/25 04:26 Pulse Rate 81 07/30/25 04:26 Respiratory Rate 16 07/30/25 04:26 Blood Pressure 143/88 H 07/30/25 04:26 Pulse Oximetry 99 07/30/25 04:26 Oxygen Delivery Method Room Air 07/30/25 04:26 Temperature 98.2 F 07/30/25 04:26 Pulse Rate 91 H 07/30/25 06:26 Respiratory Rate 18 07/30/25 06:26 Blood Pressure 128/89 07/30/25 06:26 Pulse Oximetry 96 07/30/25 06:26 Oxygen Delivery Method Room Air 07/30/25 06:26 Medical Decision Making MDM Narrative Medical decision making narrative: Dr. Ruffin and Dr. Cunningham have both seen the patient here in the emergency department. Dr. Ruffin is requesting transfer to more appropriate facility and I have spoken to Dr. Hansen at [facility]. She accepts the patient in transfer and the patient is agreeable and stable for transfer. Lab Data Lab results reviewed: Yes I reviewed the patient's lab results Labs: Lab Results 07/30/25 07/30/25 Range/Units 05:00 05:05 WBC 6.0 (4.0-11.0) 10^3/uL RBC 3.86 L (4.20-5.40) 10^6/uL Hgb 12.7 (12.0-16.0) g/dL Hct 37.6 (36.0-48.0) % MCV 97.4 (81.0-99.0) fL MCH 32.9 (26.7-34.0) pg MCHC 33.8 (29.9-35.2) g/dL RDW 15.1 H (11.0-15.0) % Plt Count 153 (150-450) 10^3/uL MPV 11.2 (9.5-13.5) fL Neut % (Auto) 49.9 (43.0-75.0) % Lymph % (Auto) 31.7 (20.5-60.0) % [place] % (Auto) 7.0 (1.7-12.0) % Eos % (Auto) 10.2 H (0.9-7.0) % Baso % (Auto) 1.0 (0.2-2.0) % Neut # (Auto) 3.0 (1.4-6.5) 10^3/uL Lymph # (Auto) 1.9 (1.2-3.8) 10^3/uL [place] # (Auto) 0.4 (0.3-0.8) 10^3/uL Eos # (Auto) 0.6 (0.0-0.7) 10^3/uL Baso # (Auto) 0.1 (0.0-0.1) 10^3/uL Abs Immat Gran (auto) 0.01 (0.00-0.03) 10^3/uL Imm/Tot Granulo (auto) 0.2 (0.0-0.5) % PT 10.5 (9.0-11.6) sec INR 0.99 APTT 27.8 (22.3-36.2) sec Sodium 143 (136-145) mmol/L Potassium 3.7 (3.5-5.1) mmol/L Chloride 107 (98-107) mmol/L Carbon Dioxide 29.1 (21.0-32.0) mmol/L Anion Gap 10.6 BUN 13.0 (7.0-18.0) mg/dL Creatinine 0.81 (0.55-1.02) mg/dL Est GFR ( Amer) >60 (>=60 mL/min/1.73m^2) Est GFR (Non-Af Amer) >60 (>=60 mL/min/1.73m^2) BUN/Creatinine Ratio 16.0 Glucose 132 H (74-106) mg/dL Calcium 8.4 L (8.5-10.1) mg/dL Total Bilirubin 0.2 (0.2-1.0) mg/dL AST 20 (15-37) U/L ALT 24 (14-59) U/L Alkaline Phosphatase 77 (46-116) U/L Total Protein 6.2 L (6.4-8.2) g/dL Albumin 2.8 L (3.4-5.0) g/dL Globulin 3.4 g/dL Albumin/Globulin Ratio 0.8 Lipase 19.0 (16.0-77.0) U/L Serum HCG, Qual Negative (NEGATIVE) Urine Color Yellow (YELLOW) Urine Clarity Sl cloudy (CLEAR) Urine pH 6.5 (5.0-9.0) Ur Specific [place] 1.025 (1.005-1.025) Urine Protein Trace (NEG/TRACE) mg/dL Urine Glucose (UA) Negative (NEGATIVE) mg/dL Urine Ketones Negative (NEGATIVE) mg/dL Urine Occult Blood Small A (NEGATIVE) Urine Nitrite Negative (NEGATIVE) Urine Bilirubin Negative (NEGATIVE) Urine Urobilinogen 1.0 (0.2-1.0) EU/dL Ur Leukocyte Esterase Negative (NEGATIVE) Urine RBC 0-2 (0-2) #/HPF Urine WBC 5-10 A (NONE SEEN) #/HPF Ur Squamous Epith Cells Many A (NONE/RARE) #/LPF Urine Crystals None seen (None Seen) #/HPF Urine Bacteria Large A (NONE SEEN) #/HPF Urine Casts None seen (NONE SEEN) #/LPF Urine Mucus Moderate A (NONE SEEN) Ur Culture Indicated? [place] [place] Type O Negative Antibody Screen Negative Imaging Data CT scan - abdomen: Radiologist's impression: CT scan per radiologist shows ovarian torsion, likely the left ovary, associated with a large homogeneous hypoattenuating mass measuring 16 x 10.9 x 13.3 cm Ultrasound per radiologist is consistent with ovarian torsion and shows a large mass. Discharge Plan Discharge Chief Complaint: Abdominal Pain Clinical Impression: Ovarian torsion, Mass of ovary Patient Disposition: [facility] Time of Disposition Decision: 08:22 Discharge Location: [facility] Condition: Fair Mode of Transportation: EMS
[2025-07-30] MEDS: 0.9 % SODIUM CHLORIDE 1,000 ML 125 ML IV (08:50)
== END 2025-07-30 09:40 | disposition short-term general hospital (02) ==
PROVIDERS: Student in an Organized Health Care Education/Training Program; Emergency Provider Emergency Medicine; PCP Family Medicine
DX: N83.512 Torsion of left ovary and ovarian pedicle (principal); N83.9 Noninflammatory disorder of ovary, fallopian tube and broad ligament, unspecified
CPT/HCPCS: 36415; 74178; 76856; 80053; 81001; 83690; 84703; 85025; 85610; 85730; 86850; 86900; 86901; 87086; 96374; 96375; 96376; 99285; J1171; J1885; J2405; Q9967

== ENCOUNTER 2025-08-10 19:54 | Outpatient (OUT) | payer MEDICARE, SELFPAY ==
--- OUTSIDE RECORDS SUMMARY | 2025-08-09 15:31 | XMS_ITS ---
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 Name Role Phone NO PCP, NO PCP Primary Care Unavailable NO PCP, NO PCP Primary Care Unavailable NO PCP, NO PCP Primary Care Unavailable KEVIN RENTERIA Attending Unavailable NO PCP, NO PCP Primary Care Unavailable Asaad, Imad Admitting Unavailable Albino Charlton Primary Care Unavailable Asaad, Imad Attending Unavailable Amando Cassidy Attending Unavailable Amando Cassidy Admitting Unavailable Asaad, Imad Attending Unavailable [place]road, Imad Admitting Unavailable Albino Charlton Primary Care Unavailable RADHA LANGE Attending Unavailable PROBLEMS DATE TYPE CONDITION / CODE ATTENDING STATUS [facility] 07/30/2025 Unknown Torsion of left ovary and ovarian pedicle / N83.512(ICD-10) KEVIN RENTERIA [facility] 07/30/2025 Unknown Abdominal Pain / FREETEXT(AOF) KEVIN RENTERIA [facility] 07/30/2025 Unknown EMS// / UNK(Unknown) KEVIN RENTERIA [facility] 07/30/2025 Unknown Pain, unspecifie d / R52(ICD-10) NA [facility] 09/21/2024 Unknown Unspecified meg l hepatitis C without hepatic coma / B19.20(ICD-10) Asaad, Imad [facility] PROCEDURES No Procedure Records Found RESULTS SURGICAL PATHOLOGY Observed: 07/30/2025 4:10 PM Status: COMPLETED Source: [facility] Order Comment: Pre-op diagno sis: OVARIAN TORSION Surgical Pathology Report Ca se: [id number] Authorizing Provider: Ethel Pro MD Collected: 07/30/2025 1610 Ordering Location: [facility] Received: 07/30/2025 1758 - Surgery Pathologist: Segun Cueva MD Specimen: Fallopian Tube and Ovary, LEFT OVARY, CYST AND FALLOPIAN TUBE Left ovary, cyst and fallopian tube, salpingo-oophorectomy: Severe congestion with extensive hemorrhagic necrosis involving ovarian and tubal parenchyma, consistent with ovarian torsion. Ovarian cyst with scant residual simple mucinous epithelial lining (see comment). No evidence of malignancy. at 1707 EDT Given that the complete cyst epithelial lining is unavailable for evaluation, the findings in the ovary are compatible with a mucinous cystadenoma or seromucinous cystadenoma. Received in formalin labeled CROKIE, left ovary, cyst and fallopian tube is a disrupted congested, deflated cosme purple dull ovary measuring 15.6 x 12 x 2.2 cm, with an adherent fimbriated congested fallopian tube remarkable for congested fimbria measuring 5.7 cm in length and 2 cm in diameter. The fallopian tube is sectioned to reveal a highly congested hemorrhagic lumen. The collapsed ovarian cystic structure is sectioned to reveal wall thickness ranging from 0.4-1.5 cm, and a dull cosme- purple brown dusky inner lining with no definitive cysts or papillary excrescences. The fimbriated end of the fallopian tube is serially sectioned and submitted in cassettes A and B and front office representative cross-sections of the tube are submitted in cassettes C and D. The deflated ovarian structure is serially sectioned to reveal congested hemorrhagic cut surfaces and front office representative sections are submitted in cassettes E-H. (8, ss, [id number], m2) TB Performed By: #### SURG #### [facility] (TT) [address] [place] [address] VIR CBC WITH AUTO DIFFERENTIAL Collected: 0 07/30/2025 1:35 PM Status: COMPLETED Source: [facility] TYPE CODE TESTS RESULT OUT OF RANGE REFERENCE UNITS LAB WBC WBC 6.7 4-11 x10E9/L LAB RBC RBC COUNT 3.86 3.8-5.2 X10E12/L LAB HGB HEMOGLOBIN 12.8 11.7-15.5 g/dL LAB HCT HEMATOCRIT 38.2 35-47 % LAB MCV MCV 99 80-100 fL LAB MCH MCH 33.1 27-34 pg LAB MCHC MCHC 33.5 32-36 g/dL LAB RDW RDW 18.8 High 11.5-15 % LAB PLTC PLATELET COUNT 133 Low 150-450 X10E9/L LAB MPV MPV 9.7 7-12 fL LAB NEUT NEUTROPHILS RELATIVE PERCENT BY AUTOMATED COUNT 79.1 % LAB LYMP LYMPHOCYTES RELATIVE PERCENT BY AUTOMATED COUNT 14.1 % LAB MONO MONOCYTES RELATIVE PERCENT BY AUTOMATED COUNT 5.0 % LAB EOS EOSINOPHILS RELATIVE PERCENT BY AUTOMATED COUNT 1.0 % LAB BASO BASOPHILS RELATIVE PERCENT BY AUTOMATED COUNT 0.8 % LAB ANEUT NEUTROPHILS ABSOLUTE COUNT BY AUTOMATED COUNT 5.3 1.5-6.6 10*3/uL LAB ALYMP LYMPHOCYTES ABSOLUTE COUNT (10*3/UL) BY AUTOMATED COUNT 0.9 Low 1.0-3.5 10*3/uL LAB AMONO MONOCYTES ABSOLUTE COUNT (10*3/UL) BY AUTOMATED COUNT 0.3 0.0-0.9 10*3/uL LAB AEOS EOSINOPHILS ABSOLUTE COUNT (10*3/UL) BY AUTOMATED COUNT 0.1 0.0-0.4 10*3/uL LAB ABASO BASOPHILS ABSOLUTE COUNT (10*3/UL) BY AUTOMATED COUNT 0.1 0.0-0.2 10*3/uL LAB DTYPE CELLAVISION DIFFERENTIAL TYPE AUTOMATED DIFFERENTIAL Performed By: #### CBCA #### [facility] ([facility]) [address] [place] [address] VIR TYPE AND SCREEN Collected: 07/30/2025 1:35 PM Status : C Source: [facility] TYPE CODE TESTS RESULT OUT OF RANGE REFERENCE UNITS LAB ABO_INTEP ABO_INTEP O LAB RH_INTEP RH_INTEP Negative LAB ABSC_INTEP ANTIBODY SCREEN Negative Performed By: #### TSC #### [facility] ([facility]) [address] [place] [address] VIR REPEATED ABORH Collected: 07/30/2025 1:35 PM S tatus: COMPLETED Source: [facility] TYPE CODE TESTS RESULT OUT OF RANGE REFERENCE UNITS LAB ABO_INTEP ABO_INTEP O LAB RH_INTEP RH_INTEP Negative Performed By: #### ABORHR ## ## [facility] ([facility]) [address] [place] [address] VIR POCT , URINE (NUCG) Collected: 07/30/2025 1:13 PM Status: COMPLETED Source: [facility] TYPE CODE TESTS RESULT OUT OF RANGE REFERENCE UNITS LAB NUCG URINE NURSING Negative Negative, Indeterminate Performed By: #### NUCG #### [facility] ([facility]) [address] [place] [address] VIR URINE CULTURE Observed: 07/30/2025 5:05 AM Status: F Source: [facility] >100,000 colonies/ml mixed bacterial skin contaminants 2 Days PERFORMED BY: [place] [address] PATHOLOGIST FLOORING HELPER VAL FRANKLIN M.D. Performed By: #### CUU #### [address] US LIVER Observed: 09/21/2024 5:43 PM Status: COMPLETED Source: [facility] [place] [address] Ultrasound Report Signed Patient: Dayana Bach MR#: [id number] 3 : 1990 Acct:[id number] Age/Sex: 34 / F ADM Date: 09/21/24 Loc: Room: Type: [facility] Attending Dr: Bal Casey MD Ordering Provider: [...] Ivan Guevara M.D.09/21/2024 5:45 PM Dictation Location: [place] [address] Tech: Liv Wagoner Transcribed By: [facility] 09/21/241744 Dictated By: Ivan Guevara II, MD 09/21/241742 Signed By: <Electronically signed by Ivan Guevara II, MD in OV> 09/21/241744 HIV 1/O/2 ANTIGEN/ANTIBODY Collected: 11/21/2023 11:45 AM Status: F Source: [facility] TYPE CODE TESTS RESULT OUT OF RANGE REFERENCE UNITS LAB HIV SCRN 4TH HIV Screen 4th Generation Non Reactive Non Reactive Result Comment: HIV-1/HIV-2 antibodies and HIV-1 p24 antigen were NOT detected. There is no laboratory evidence of HIV infection. HIV Negative Performed at: [facility] [id number] Activities Counselor: Pascual De La Cruz PhD, Phone: [phone] PERFORMED BY: [address] [address] PATHOLOGIST FLOORING HELPER JANET MILLAN M.D. Performed By: #### HCV RNA D IAG, HBCAB, HBSAB, HAABT, HIV SCREEN, HBSAG, HCV RX PCR #### [facility] , HEP C RNA DIAGNOSIS Collected: 09/21/2024 11:45 AM S tatus: F Source: [facility] TYPE CODE TESTS RESULT OUT OF RANGE REFERENCE UNITS LAB HCVDXQN1 HCV RNA, Quantitation See Final Results . LAB HCVDXTESTINFO Test Information: Comment . Result Comment: The quantita tive range of this assay is 15 IU/mL to 100 million IU/mL. Performed at: [address] [id number] Activities Counselor: Stephanie Vergara MD, Phone: [phone] LAB HCVDXQN2 HCV RNA, Quant, Confirm [id number] . Result Comment: HCV RNA dete cted HCV RNA viral loads >/= 25 IU/mL indicate current HCV infection. LAB [id number] HCV RNA log10, Confirm 7.097 . Result Comment: Result Units : log10 IU/mL PERFORMED BY: [address] [place] [address] PATHOLOGIST FLOORING HELPER JANET MILLAN M.D. Performed By: #### HCV RNA D IAG, HBCAB, HBSAB, HAABT, HIV SCREEN, HBSAG, HCV RX PCR #### [facility] , HEP C AB WRFX TO QNT PCR Collected: 09/21/2024 11:45 AM Status: F Source: [facility] TYPE CODE TESTS RESULT OUT OF RANGE REFERENCE UNITS LAB HCV AB. Hepatitis C Viru s Antibody Reactive Abnormal Alert Non Reactive LAB HCV QUANT Hepatitis C Quantitation [id number] . [IU]/mL LAB HCV lOG10 HCV Log10 6.999 . Result Comment: Result Units : log10 IU/mL LAB TEST INFO Test Information: Comment . Result Comment: The quantita tive range of this assay is 15 IU/mL to 100 million IU/mL. LAB INTERP Interpretation Comment . Result Comment: Positive HCV antibody screen with the presence of HCV RNA is consistent with active infection. Performed at: [address] [id number] Activities Counselor: Pascual De La Cruz PhD, Phone: [phone] Performed at: [address] [id number] Activities Counselor: Stephanie Vergara MD, Phone: [phone] Performed By: #### HCV RNA D IAG, HBCAB, HBSAB, HAABT, HIV SCREEN, HBSAG, HCV RX PCR #### [facility] , HEPATITIS A ANTIBODY TOTAL Collected: 1 11/21/2023 11:45 AM Status: F Source: [facility] TYPE CODE TESTS RESULT OUT OF RANGE REFERENCE UNITS LAB HAABT Hepatitis A Antibody Total Negative Negative Result Comment: Comment: The HAV total antibody assay detects both IgG and IgM but does not differentiate between them. A negative result suggests susceptibility to infection. A positive result could be due to vaccination, previously resolved infection or active infection. Testing for HAV IgM should be performed if active HAV infection is suspected. [facility] offers profiles that will automatically reflex positive HAV total antibody results to IgM (e.g., panel #[id number] HAV Antibody w/ Rfx). Performed at: [address] [id number] Activities Counselor: Pascual De La Cruz PhD, Phone: [phone] Performed By: #### HCV RNA D IAG, HBCAB, HBSAB, HAABT, HIV SCREEN, HBSAG, HCV RX PCR #### [facility] , HEPATITIS B SURFACE ANTIBODY Collected: 09/21/2024 11:45 AM Status: F Source: [facility] TYPE CODE TESTS RESULT OUT OF RANGE REFERENCE UNITS LAB HBSAB Hepatitis B Surface Antibody Non Reactive . Result Comment: Non Reactive : Not immune to HBV infection. Equivocal: Unable to determine if anti-HBs is present at levels consistent with immunity. Reactive: Anti-HBs concentration detected at greater than 10 mIU/mL. Individual is considered to be immune to infection with HBV. Performed By: #### HCV RNA D IAG, HBCAB, HBSAB, HAABT, HIV SCREEN, HBSAG, HCV RX PCR #### [facility] , HEPATITIS B CORE ANTIBODY Collected: 11:45 AM Status: F Source: [facility] TYPE CODE TESTS RESULT OUT OF RANGE REFERENCE UNITS LAB HBCAB Hepatitis B Core Antibody Positive Abnormal Alert Negative Performed By: #### HCV RNA D IAG, HBCAB, HBSAB, HAABT, HIV SCREEN, HBSAG, HCV RX PCR #### [facility] , HEPATITIS B SURFACE ANTIGEN Collected: 09/21/2024 11:45 AM Status: F Source: [facility] TYPE CODE TESTS RESULT OUT OF RANGE REFERENCE UNITS LAB HBSAG SCR HBsAg Screen Negative Negative Result Comment: PERFORMED BY : [facility] [place] [address] PATHOLOGIST FLOORING HELPER PALOMA KNIGHT M.D. Performed By: #### HCV RNA D IAG, HBCAB, HBSAB, HAABT, HIV SCREEN, HBSAG, HCV RX PCR #### [facility] , ALLERGIES DATE TYPE / CODE NAME / CODE REACTION SEVERITY SOURCE Drug Class/163974857(SNO MED CT) NO KNOWN ALLERGIES [facility] ENCOUNTERS ADMIT/DISCHARGE ACCOUNT NUMBER ADMITTING ENCOUNTER CLASS LOCATION SOURCE 08/09/2025/08/09/20 [id number] Ambulatory Building:NOM S BCP OB [facility] 07/30/2025/07/30/20 [id number] Emergency Building:PTH _PERIOPRoom: POOL 1Bed: NONE [facility] 07/30/2025 [id number] Ambulatory Building:[facility] 07/30/2025 [id number] Ambulatory Building:[facility] 07/30/2025 [id number] Ambulatory Building:[facility] 07/30/2025/07/30/20 [id number] [facility]ando Cassidy [facility] 09/21/2024/09/21/20 24 [id number] [facility] 09/15/2024/09/15/20 24 [id number] [facility] PAYERS ENCOUNTER GUARANTOR PAYER SUBSCRIBER SOURCE 08/09/2025 DAYANA TOMLINSONOB: [place], [place] [address]Yjb: () Primary Insurance:AETNA MEDICARE ADVANTAGEPolicy Number: [id number] Date:2023-12-12 DAYANA TOMLINSONOB: [id number] [place] [address] [facility] 07/30/2025 DAYANA OGLESBYEDOB: [facility], [place] [address]Yoo: (HP) Primary Insurance:AET MEDICARE PLAN (HMO)Policy Number: [id number] Date:2023-12-12 DAYANA Desai CROKIEDOB: [id number] [place], [place] [address]Tws: (HP) [facility] 07/30/2025 DAYANA OGLESBYEDOB: [place], [place] [address]Tux: (HP) Primary Insurance:AETNA MEDICARE PLAN (HMO)Policy Number: [id number] Date:2023-12-12 DAYANA OGLESBYEDOB: [id number] [place], [place] [address]Dwm: (HP) [facility] 07/30/2025 DAYANA OGLESBYEDOB: [place], [place] [address]Bvq: (HP) Primary Insurance:AET MEDICARE PLAN (HMO)Policy Number: [id number] Date:2023-12-12 DAYANA OGLESBYEDOB: [id number] [place], [place] [address]Ijg: (HP) [facility] 07/30/2025 DAYANA OGLESBYEDOB: [place], [place] [address]Rgl: (HP) Primary Insurance:AETNA MEDICARE PLAN (HMO)Policy Number: [id number] Date:2023-12-12 DAYANA Desai CROKIEDOB: [id number] [place], [place] [address]Ukm: () [facility]
--- NOTE | 2025-08-10 20:01 | US_ITS ---
The [address] [address] Patient Name: GERSON HARVEY MRN: [id number] date: 1990 Sex: F Assigned Patient Location: US Current Patient Location: Accession/Order Number: [id number] Exam Date: 08/10/2025 20:04 Report Date: 08/11/2025 10:03 At the request of: CHARLES GARCIA DO Procedure: US abdomen limited LIMITED PELVIC WALL ULTRASOUND: CLINICAL HISTORY: Patient feels lump following left oophorectomy. Z48.89 COMPARISON: 07/30/[address] Real-time ultrasound evaluation of the site of patient's lump was performed. This is slightly superior to the pubic bone on the left. There is a mixed echogenicity area with anechoic and hypoechoic components between the subcutaneous fat and anterior pelvic wall muscles. It measures 3.5 x 1.2 x 3.7 cm in size. There is no associated vascularity. This is nonspecific and could be a postoperative collection including evolving hematoma, fat necrosis or abscess in the correct clinical setting. Clinical correlation is suggested. US/US abdomen limited IMPRESSION: SUBCUTANEOUS MIXED ECHOGENICITY AREA AT THE SITE OF PALPABLE CONCERN, DESCRIBED. Impression dictated by: Kim Trejo M.D. 08/11/2025 10:03 AM Dictation Location: [place] [address] Electronically authenticated by: [id number] Y Date: 08/11/2025 10:03
== END 2025-08-10 19:55 | disposition home or self-care (01) ==
PROVIDERS: PCP Family Medicine; Visit Provider Obstetrics & Gynecology
DX: Z48.89 Encounter for other specified surgical aftercare (principal); Z90.721 Acquired absence of ovaries, unilateral
CPT/HCPCS: 76705